=== PATIENT | female | born 1990 | race Caucasian/White ===

== ENCOUNTER 2017-01-18 03:50 | Observation (INO) | payer OTHER ==
[2017-01-18 09:11] LABS: BUN/CREATININE RATIO 16 (0-10)
== END 2017-01-18 17:42 | disposition home or self-care (01) ==
LOC: OB 05:06
PROVIDERS: ADMIT Obstetrics & Gynecology
DX: K80.80 Other cholelithiasis without obstruction (principal); O14.95 Unspecified pre-eclampsia, complicating the puerperium; Z79.899 Other long term (current) drug therapy; Z88.8 Allergy status to other drugs, medicaments and biological substances; Z82.49 Family history of ischemic heart disease and other diseases of the circulatory system; Z83.3 Family history of diabetes mellitus
CPT/HCPCS: ECHO; 36415; 76705; 80053; 82150; 82550; 82553; 83690; 83880; 84484; 93005; 93306; G0378; G0379